=== PATIENT | male | born 1985 | race Caucasian/White ===

== ENCOUNTER 2018-01-19 18:14 | Inpatient (IN) | payer SELFPAY ==
[2018-01-19 19:25] LABS: BASO % 0.1 % (0.0-2.0); EOS % 0.1 % (0.0-4.0); HEMOGLOBIN 15.2 g/dL (12.0-18.0); LYMPH # 0.9 K/uL (1.0-4.3); LYMPH % 6.9 % (20.0-40.0); MEAN CELL VOLUME 81.7 fL (80.0-94.0); MEAN PLATELET VOLUME 7.3 fL (7.2-11.7); MONO # 0.6 K/uL (0.0-0.8); MONO % 4.2 % (0.0-10.0); NEUT # 11.8 K/uL (1.8-7.0); NEUT % 88.7 % (50.0-75.0); PLATELET COUNT 269 K/uL (130-400); RBC 5.63 Mil/uL (4.40-5.90); RED CELL DISTRIBUTION WIDTH 13.5 % (11.5-14.5); WHITE BLOOD COUNT 13.3 K/uL (4.8-10.8)
[2018-01-19 19:37] LABS: SQUAMOUS EPITHIAL 1 /hpf (0-5); URINE BACTERIA RARE (<OCC); URINE BILIRUBIN NEGATIVE (NEGATIVE); URINE BLOOD NEGATIVE (NEGATIVE); URINE CLARITY Clear (Clear); URINE COLOR Straw (YELLOW); URINE GLUCOSE (UA) NORMAL (Normal); URINE LEUKOCYTE ESTERASE NEG Leu/uL (Negative); URINE PROTEIN NEGATIVE (NEGATIVE); URINE UROBILINOGEN NORMAL mg/dL (0.2-1.0)
[2018-01-19 19:39] LABS: ALB/GLOB RATIO 1.5 (1.0-2.1); ALBUMIN 5.2 g/dL (3.5-5.0); ALT/SGPT 44 U/L (21-72); AST/SGOT 30 U/L (17-59); BLOOD UREA NITROGEN 13 mg/dL (9-20); CALCIUM 9.8 mg/dl (8.6-10.4); GFR AFRICAN-AMERICAN > 60; GFR NON-AFRICAN AMERICAN > 60
[2018-01-19 19:43] LABS: BARBITURATES, UR NEGATIVE (NEGATIVE); BENZODIAZEPINES, UR NEGATIVE (NEGATIVE); OPIATES, UR NEGATIVE (NEGATIVE); PHENCYCLIDINE, UR NEGATIVE (NEGATIVE)
--- NOTE | 2018-01-19 19:44 | C.PDOC ---
History Of Present Illness 32 y/o male brought to ED by EMS for evaluation after stating he has important information for the [employer]. 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 Patient told statement to Patricia who became concerned and called the police. At ED patient is refusing to give any inofrmation to anyone and is requesting to speak to FBI. No other complaints at this time. He is cooperative with medical screening exam. Time Seen by Provider: 01/19/18 18:45 Chief Complaint (Nursing): Psychiatric Evaluation History Per: Patient History/Exam Limitations: no limitations Onset/Duration Of Symptoms: Days Current Symptoms Are (Timing): Still Present Suicide/Self Injury Attempted (Context): None Modifying Factor(s): None Past Medical History Reviewed: Historical Data, Nursing Documentation, Vital Signs Vital Signs: Last Vital Signs Temp 98.3 F 01/19/18 22:30 Pulse 93 H 01/19/18 22:30 Resp 16 01/19/18 22:30 BP 163/106 H 01/19/18 22:30 Pulse Ox 97 01/19/18 22:30 - Medical History PMH: No Chronic Diseases Surgical History: No Surg Hx Family History: States: No Known Family Hx - Social History Hx Alcohol Use: No Hx Substance Use: No - Immunization History Hx Tetanus Toxoid Vaccination: No Hx Influenza Vaccination: No Hx Pneumococcal Vaccination: No Review Of Systems Constitutional: Negative for: Fever, Chills Cardiovascular: Negative for: Chest Pain Respiratory: Negative for: Shortness of Breath Gastrointestinal: Negative for: Nausea, Vomiting Neurological: Negative for: Headache Psych: Negative for: Anxiety, Suicidal ideation Physical Exam - Physical Exam Appears: Non-toxic, No Acute Distress Skin: Warm, Dry, No Rash Head: Atraumatic, Normacephalic Eye(s): bilateral: Normal Inspection Oral Mucosa: Moist Neck: Normal ROM, Supple Cardiovascular: Rhythm Regular Respiratory: Normal Breath Sounds, No Rales, No Rhonchi, No Wheezing Gastrointestinal/Abdominal: Soft, No Tenderness, No Guarding, No Rebound Neurological/Psych: Oriented x3, Normal Speech, Normal Cognition ED Course And Treatment - Laboratory Results Result Diagrams: 01/19/18 19:21 01/19/18 19:21 Lab Interpretation: No Acute Changes (UDS + marijuana) ECG: Interpreted By Me ECG Rhythm: Sinus Rhythm ECG Interpretation: Normal O2 Sat by Pulse Oximetry: 100 (RA) Pulse Ox Interpretation: Normal - Radiology CXR: Interpreted by Me CXR Interpretation: Yes: No Acute Disease Progress Note: 8:45 Patient remains quiet and comfortable. Evaluation by crisis and after conversation with Dr Pulido [facility] screener was contacted for evaluation. Reevaluation Time: 22:54 Reassessment Condition: Improved (Patient now agrees to voluntary admission.) Disposition - Disposition Disposition: HOSPITALIZED Disposition Time: 22:54 Condition: STABLE - POA Present On Arrival: None - Clinical Impression Clinical Impression: Paranoia - Scribe Statement The provider has reviewed the documentation as recorded by the Sunilibannetta Nicole All medical record entries made by the Abby were at my direction and personally dictated by me. I have reviewed the chart and agree that the record accurately reflects my personal performance of the history, physical exam, medical decision making, and the department course for this patient. I have also personally directed, reviewed, and agree with the discharge instructions and disposition.
[2018-01-19 20:17] LABS: LYMPHOCYTE 8 % (20-40); MONOCYTE 4 % (0-10); NEUTROPHIL 88 % (50-75); PLATELET ESTIMATE NORMAL (NORMAL); TOTAL CELLS COUNTED 100
--- NOTE | 2018-01-20 00:14 | PCM.BM ---
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[employer]), good support system (his gilfriend) Patient Liabilities: poor support system (family lives in [place]), substance abuse (used marijuana last used wednesday) - Milieu Protocol Maintain good personal hygiene: daily Encourage regular showers, every shift Remind patient to perform daily oral care, every shift Assist patient to perform ADL's Conduct patient checks and document Observation sheet: Q15 minutes, Constant Maintain personal safety: every shift Educate patient to report safety concerns to staff, every shift Monitor environment for contraband/sharps Medication safety: Monitor for expected outcome, potential side effects: every shift, Assess barriers to learning: every shift, Assess readiness for medication education: every shift <Cecilia Tatum - Last Filed: 01/21/18 11:40> Family Contact Family involvement: Family/SO is involved Family contact: Patient agrees to contact Family contact name: Erin Shirley-girlfriend Family contacted how many times per week?: 1 - Goals for Treatment Patient goals for treatment: "I want to go home." Discharge/Continuing Care - Education Needs Education Needs: Patient Medication, Patient Coping Skills - Discharge Discharge Criteria: Tolerates medication w/o severe side effects, Free of paranoid thoughts, Reduction of target symptoms Discharge to:: Home, With Family - Treatment Team Participation Discussed with Family/SO: No Was Patient/Family/SO present at Treatment Team Meeting: Yes <Rudy Lema - Last Filed: 01/21/18 12:56> - Diagnosis (1) Major depressive disorder, 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
--- NOTE | 2018-01-20 10:52 | PCM.PSYCH ---
Initial Psychiatric Evaluation - Initial Psychiatric Evaluation Type of Admission: Voluntary Legal Status: Capacity Chief Complaint (in patient's own words): 'I am scared of my life and my girl friend' life. I cant mention the names of the people, who are after me as they are very powerful.' History of Present Illness and Precipitating Events: Pt is a 32 year old male, who was escorted to the ED by the police, in a disorganized and delusional state. As per the ED note, patient's landlord called the police because of his bizarre behavior. Pt remained disorganized and internally preoccupied. He remained very paranoid and delusional. 'I cant mention the names of the people, who were following me , as they are very powerful. I have 6 months of the analysis, I am very good in that.' 'I am scared of my life and my GF life'. 'I am am [place] and people are chasing me and they are coming in the big cars.' 'I have spoken to 7 powerful people in [place].' 'I am the base of [place] investigation and election and I know what happened in the elections and how the Trump came in. I don't have the proof but I can find the proof.' 'Trump approached me and told me not to tell anything.' 'FBI, [employer] and [employer] are aware of it.' 'I didn't inform my GF as she will get scared.' 'On the streets the people are giving me signals to not to report.' He denies any past history of any inpatient psychiatric hospitalization. He also denies any follow up with psychiatrist. He reports anxiety and depressed mood. He remained isolated and withdrawn and reports poor sleep. He denies any suicidal ideation or any homicidal ideation. Pt reports of drinking and smoking marihuana socially. PMH None reported Current Medications: Active Medications Generic Name Dose Route Start Last Admin Trade Name Freq PRN Reason Stop Dose Admin Hydroxyzine HCl 25 mg 01/19/18 23:57 Atarax PO Q6 PRN Anxiety Pneumococcal Polyvalent Vaccine 0.5 ml 01/22/18 10:00 Pneumovax 23 Vaccine IM 01/22/18 10:01 .ONCE ONE Trazodone HCl 50 mg 01/19/18 23:57 Desyrel PO HS PRN Sleep Past Psychiatric History - Past Psychiatric History Previous Treatment History: None Pertinent Medical Hx (Current Medical&Sleep Prob, Allergies): Allergies Allergy/AdvReac Type Severity Reaction Status Date / Time No Known Allergies Allergy Unverified 01/19/18 18:57 Review of Systems - Review of Systems All systems: reviewed and no additional remarkable complaints except - Psychiatric Psychiatric: Anxiety, Auditory Hallucinations, Irritability, Paranoia. absent: Suicidal Ideation Mental Status Examination - Personal Presentation Personal Presentation: Looks stated age - Affect Affect: Constricted, Depressed - Motor Activity Motor Activity: Psychomotor Agitation - Reliability in Providing Information Reliability in Providing Information: Poor, due to alteration in thoughts, Poor , due to altered mood - Speech Speech: Disorganized - Mood Mood: Depressed, Anxious - Formal Thought Process Formal Thought Process: Hallucinations, Delusions, Paranoia, Loosening of associations - Hallucinations/Delusions Hallucinations: Auditory Delusions: Granduer, Persecution - Obsessions/Compulsions Obsessions: No Compulsions: No - Cognitive Functions Orientation: Person, Place, Situation, Time Sensorium: Alert Attention/Concentration: Attentive Abstract Thinking: [place] Estimate of Intelligence: Below average Judgement: Imparied, as evidence by: Poor judgement, Imparied, as evidence by: Lack of insight into illness - Risk Risk: Diminished functioning - Strength & Assets Inventory Strength & Assets Inventory: Education, Employment status - Limitations Limitations: Living alone DSM 5 DX - DSM 5 DSM 5 Diagnosis: 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
--- NOTE | 2018-01-21 10:34 | PCM.PYCHPN ---
Psychiatric Progress Note - Psychiatric Progress Note Patient seen today, length of contact: 15 min Patient Chief Complaint: 'I am scared of my life and my girl friend' life. I cant mention the names of the people, who are after me as they are very powerful.' Problems Identified/Issues Discussed: Patient seen and evaluated, chart reviewed and discussed with the nurse. He reports depressed mood and feelings of hopelessness and helplessness. He still reports suicidal ideation without any plan. Patient remained isolated, confined and withdrawn. Patient is compliant with medications and denies any side effects. Symptoms are improving but need more time to stabilize. Support and psychoeducation given. Had a meeting with the friendHelena Medication Change: Yes Medical Record Reviewed: Yes Mental Status Examination - Cognitive Function Orientation: Person, Place, Situation, Time Memory: Intact Attention: WNL Concentration: Poor Association: Loose Fund of Knowledge: Poor - Mood Mood: Depressed, Anxious - Affect Affect: Constricted, Depressed - Speech Speech: Soft - Formal Thought Process Formal Thought Process: Hallucinations, Delusions, Paranoia, Loosening of associations - Suicidal Ideation Suicidal Ideation: No - Homicidal Ideation Homicidal Ideation: No Goal/Treatment Plan - Goal/Treatment Plan Need for Continued Stay: Severe depression anxiety, Severe functional impairment Progress Toward Problem(s) and Goals/Treatment Plan: 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
[2018-01-22 06:42] VITALS: O2SAT 100
[2018-01-22] MEDS ORDERED: Pneumococcal 23-Valent Vaccine IM ONE (10:00)
--- NOTE | 2018-01-22 20:32 | PCM.PYCHPN ---
Psychiatric Progress Note - Psychiatric Progress Note Patient seen today, length of contact: 15 min Patient Chief Complaint: "" Problems Identified/Issues Discussed: Pt was seen and evaluated. Chart reviewed. Nurse input received. Pt is still isolated to his home. He is not attending groups or other activities. Pt appeared guarded. He appeared internally preoccupied and responding to stimuli. He had bizarre delusions that he belongs to [employer]. He is compliant with meds and denied side effects. 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 Cannabis use disorder moderate Medication Change: Yes Medical Record Reviewed: Yes Mental Status Examination - Cognitive Function Orientation: Person, Place, Situation, Time Memory: Intact Attention: WNL Concentration: Poor Association: Loose Fund of Knowledge: Poor Decription of patient's judgement and insights: limited/limited - Mood Mood: Anxious - Affect Affect: Constricted, Depressed - Speech Speech: Soft - Formal Thought Process Formal Thought Process: Delusions, Paranoia, Loosening of associations Psychotic Thoughts and Behaviors: He appeared internally preoccupied and responding to stimuli - Suicidal Ideation Suicidal Ideation: No Plan: denied - Homicidal Ideation Homicidal Ideation: No Plan: denied Goal/Treatment Plan - Goal/Treatment Plan Need for Continued Stay: Severe depression anxiety, Discharge may exacerbated symptoms, Severe functional impairment Progress Toward Problem(s) and Goals/Treatment Plan: -CBT -Psychoeducation -Supportive therapy, group therapy, individual therapy -Risperdal I am PO BID -Cogentin 1 mg by mouth twice a day -Trazodone 50 mg by mouth daily at bedtime -Hydroxyzine 25 mg by mouth every 6 hours when necessary Estimated Date of D/C: 01/25/18
[2018-01-23 06:40] VITALS: TEMP 97.7
--- NOTE | 2018-01-23 15:30 | PCM.PYCHPN ---
Psychiatric Progress Note - Psychiatric Progress Note Patient seen today, length of contact: 15 min Patient Chief Complaint: Pt was seen and evaluated. Chart reviewed. Nurse input received. Pt appeared guarded. He appeared internally preoccupied and responding to stimuli. He had bizarre delusions that he belongs to senior patrol agent. Pt is still isolated to his home. He is not attending groups or other activities. He is compliant with meds and denied side effects. He denied AH/ VH. He denied SI, HI, intent or plan. Medication Change: No Medical Record Reviewed: Yes Mental Status Examination - Cognitive Function Orientation: Person, Place, Situation, Time Memory: Intact Attention: WNL Concentration: Poor Association: Loose Fund of Knowledge: Poor Decription of patient's judgement and insights: limited/fair - Mood Mood: Depressed, Anxious - Affect Affect: Constricted, Depressed - Speech Speech: Soft - Formal Thought Process Formal Thought Process: Delusions, Paranoia, Loosening of associations Psychotic Thoughts and Behaviors: paranoid delusions - Suicidal Ideation Suicidal Ideation: No Plan: denied - Homicidal Ideation Homicidal Ideation: No Plan: denied Goal/Treatment Plan - Goal/Treatment Plan Need for Continued Stay: Severe depression anxiety, Discharge may exacerbated symptoms, Severe functional impairment Progress Toward Problem(s) and Goals/Treatment Plan: Continue current treatment and management. Psychoeducation Supportive therapy provided Encouraged him to attend and participate in groups Medication, benefits, risk were discussed with the pt. He verbalized understand and agree with treatment plan Estimated Date of D/C: 01/25/18
[2018-01-24 06:33] VITALS: BP 144/96; PULSE 102; RESP 18
--- NOTE | 2018-01-24 10:28 | PCM.PYCHDC ---
Mental Status Examination - Mental Status Examination Orientation: Person, Place, Time Memory: Intact Mood: Neutral Affect: Constricted Speech: Soft Attention: WNL Concentration: WNL Association: WNL Fund of Knowledge: WNL Formal Thought Process: No Impairment Description of patient's judgement and insight: GOOD, FAIR Psychotic Thoughts and Behaviors: denies any AVH Suicidal Ideation: No Current Homicidal Ideation?: No Discharge Summary - Discharge Note Reason for Hospitalization: Pt is a 32 year old American male, who was escorted to the ED by the police, in a disorganized and delusional state. As per the ED note, patient's landlord called the police because of his bizarre behavior. Pt remained disorganized and internally preoccupied. He remained very paranoid and delusional. 'I cant mention the names of the people, who were following me , as they are very powerful. I have 6 months of the analysis, I am very good in that.' 'I am scared of my life and my GF life'. 'I am am [place] Hero and people are chasing me and they are coming in the big cars.' 'I have spoken to 7 powerful people in [place].' 'I am the base of [place] investigation and election and I know what happened in the elections and how the Trump came in. I don't have the proof but I can find the proof.' 'Trump approached me and told me not to tell anything.' 'FBI, [employer] and [employer] are aware of it.' 'I didn't inform my GF as she will get scared.' 'On the streets the people are giving me signals to not to report.' He denies any past history of any inpatient psychiatric hospitalization. He also denies any follow up with psychiatrist. He reports anxiety and depressed mood. He remained isolated and withdrawn and reports poor sleep. He denies any suicidal ideation or any homicidal ideation. Pt reports of drinking and smoking marihuana socially. Consultations:: List each consultation separately and include: 1. Reason for request. 2. Findings. 3. Follow-up Summary of Hospital Course include:: 1. Description of specific treatment plan utilized for patients during their course of treatmen. 2. Summarize the time- course for resolution of acute symptoms and/or regressed behaviors. 3. Describe issues identified and worked on during hospitalization. 4. Describe medication utilized. 5. Describe medical problems identified and treated. 6. Reassessment of suicide risk Summary of Hospital Course: Pt is a 32 year old American male, who was escorted to the ED by the police, in a disorganized and delusional state. As per the ED note, patient's landlord called the police because of his bizarre behavior. Pt remained disorganized and internally preoccupied. He remained very paranoid and delusional. 'I cant mention the names of the people, who were following me , as they are very powerful. I have 6 months of the analysis, I am very good in that.' 'I am scared of my life and my GF life'. 'I am am [place] Hero and people are chasing me and they are coming in the big cars.' 'I have spoken to 7 powerful people in [place].' 'I am the base of [place] investigation and election and I know what happened in the elections and how the Trump came in. I don't have the proof but I can find the proof.' 'Trump approached me and told me not to tell anything.' 'FBI, [employer] and [employer] are aware of it.' 'I didn't inform my GF as she will get scared.' 'On the streets the people are giving me signals to not to report.' He denies any past history of any inpatient psychiatric hospitalization. He also denies any follow up with psychiatrist. He reports anxiety and depressed mood. He remained isolated and withdrawn and reports poor sleep. He denies any suicidal ideation or any homicidal ideation. Pt reports of drinking and smoking marihuana socially. 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
--- NOTE | 2018-01-24 23:45 | CARD ---
APPROVED REPORT EKG Measurement Heart [id number] <Conclusion> Normal sinus rhythm Normal ECG
== END 2018-01-24 12:40 | disposition home or self-care (01) | DRG 885 ==
LOC: C.ER 18:14 → C.5E 22:54
DX: F32.3 Major depressive disorder, single episode, severe with psychotic features (principal); R45.851 Suicidal ideations; F41.9 Anxiety disorder, unspecified; F12.10 Cannabis abuse, uncomplicated